=== PATIENT | female | born 2000 | race Hispanic/Latino ===

== ENCOUNTER 2021-01-14 11:16 | Observation (INO) | payer MEDICAID ==
[~2021-01-14] VITALS: Ht 152.4 cm; Wt 53.5 kg
[2021-01-14 11:18] VITALS: BP 110/66
[2021-01-14 13:35] VITALS: BP 112/63
[2021-01-14 14:27] LABS: APPEARANCE,URINE Clear (CLEAR); BILIRUBIN,URINE Negative (NEGATIVE); COLOR,URINE Yellow (YELLOW); GLUCOSE, URINE (UA) Negative (NEGATIVE); KETONES,URINE Negative (NEGATIVE); LEUKOCYTE ESTERASE ,URINE Large (NEGATIVE); NITRATE,URINE Negative (NEGATIVE); OCCULT BLOOD,URINE Negative (NEGATIVE); PROTEIN,URINE Negative (NEGATIVE)
[2021-01-14] MEDS: LACTATED RINGERS 1000ML 1,000 ML IV SCH ×3 (14:40→22:18)
[2021-01-14 14:48] LABS: BACTERIA,URINE Few /HPF (None Seen); RBC,URINE 0-1 /HPF (0-1); SQUAMOUS EPITHELIAL CELL,UR Moderate /HPF (0-2)
[2021-01-14 14:49] LABS: MUCUS,URINE Rare LPF (None Seen)
[2021-01-14 15:08] LABS: HEMATOCRIT 26.7 % (36-48); MEAN CORPUSCULAR HEMOGLOBIN 31.4 pg (27.0-33.0); MEAN CORPUSCULAR HGB CONC 33.7 g/dL (32.0-36.0); RED BLOOD CELL COUNT(AUTO) 2.87 MIL/uL (4.00-5.50); RED CELL DISTRIBUTION WIDTH 14.2 % (11.0-15.5); WHITE BLOOD COUNT (AUTO) 8.1 K/uL (4.8-10.8)
[2021-01-14 15:22] LABS: CREATININE 0.4 mg/dL (0.5-1.5); POTASSIUM 3.8 mmol/L (3.5-5.1)
[2021-01-14 15:23] LABS: INR 0.91 (0.85-1.15)
[2021-01-14 15:25] LABS: PARTIAL THROMBOPLASTIN TIME 24.3 SEC (26.3-35.5)
[2021-01-14 15:28] LABS: ALBUMIN 2.4 g/dL (3.5-5.0); BILIRUBIN,TOTAL 0.3 mg/dL (0.2-1.0); TOTAL PROTEIN, SERUM 6.1 g/dL (6.0-8.3)
[2021-01-14] MEDS ORDERED: TERBUTALINE SULFATE VIAL 1MG/ML SQ SCH ×2 (21:30)
[2021-01-15] MEDS: LACTATED RINGERS 1000ML 1,000 ML IV SCH (00:39)
== END 2021-01-15 08:50 | disposition home or self-care (01) ==
LOC: EDH 11:16 → LDH 11:17
PROVIDERS: ADMIT Obstetrics & Gynecology; ATTEND Obstetrics & Gynecology
DX: O9A.213 Injury, poisoning and certain other consequences of external causes complicating pregnancy, third trimester (principal); S70.02XA Contusion of left hip, initial encounter; O62.9 Abnormality of forces of labor, unspecified; Z3A.36 36 weeks gestation of pregnancy; W18.30XA Fall on same level, unspecified, initial encounter; Y93.89 Activity, other specified; Y92.89 Other specified places as the place of occurrence of the external cause; Y99.8 Other external cause status
CPT/HCPCS: 36415; 59025; 76805; 80053; 81001; 85027; 85378; 85384; 85610; 85730; 86850; 86900; 86901; 87088; 96360; 96361 ×5; 96372; 99284; G0378 ×20; J3105; J7120 ×3

== ENCOUNTER 2021-04-03 21:59 | Inpatient (IN) | payer MEDICAID ==
[~2021-04-03] VITALS: Ht 152.4 cm; Wt 57.2 kg
[2021-04-03] MEDS ORDERED: LACTATED RINGERS 500 ML 500 ML IV PRN (22:30)
[2021-04-03] MEDS ORDERED: EPHEDRINE SULFATE 50 MG/ML AMPULE IVP PRN (22:30)
[2021-04-03] MEDS ORDERED: NALOXONE HCL 0.4 MG/1 ML ML IV PRN (22:30)
[2021-04-03] MEDS ORDERED: ROPIVACAINE 0.2% 100ML VIAL 100 ML EP SCH (22:30)
[2021-04-03 22:41] LABS: APPEARANCE,URINE Cloudy (CLEAR); BILIRUBIN,URINE Small (NEGATIVE); COLOR,URINE Dark Yellow (YELLOW); GLUCOSE, URINE (UA) Negative (NEGATIVE); KETONES,URINE Negative (NEGATIVE); LEUKOCYTE ESTERASE ,URINE Small (NEGATIVE); NITRATE,URINE Negative (NEGATIVE); OCCULT BLOOD,URINE Negative (NEGATIVE); PH,URINE 5.5 (5.0-8.0); PROTEIN,URINE POS 1+ mg/dL (NEGATIVE)
[2021-04-03 22:55] VITALS: BP 115/58
[2021-04-03 22:57] LABS: BACTERIA,URINE Few /HPF (None Seen); SQUAMOUS EPITHELIAL CELL,UR Many /HPF (0-2)
[2021-04-03 23:00] LABS: HEMATOCRIT 29.3 % (36-48); MEAN CORPUSCULAR HEMOGLOBIN 29.8 pg (27.0-33.0); MEAN CORPUSCULAR HGB CONC 33.8 g/dL (32.0-36.0); MEAN CORPUSCULAR VOLUME 88.3 fL (79-99); RED BLOOD CELL COUNT(AUTO) 3.32 MIL/uL (4.00-5.50); WHITE BLOOD COUNT (AUTO) 11.1 K/uL (4.8-10.8)
[2021-04-03] MEDS: LACTATED RINGERS 1000ML 1,000 ML IV PRN (23:17)
[2021-04-04] MEDS: LACTATED RINGERS 1000ML 1,000 ML IV PRN ×3 (03:52→07:02)
[2021-04-04] MEDS ORDERED: OXYTOCIN-LR 20 UNITS/1000 ML 1,000 ML IV SCH ×2 (04:00→13:00)
[2021-04-04] MEDS ORDERED: FENTANYL CITRATE PF 50 MCG/1 ML 2ML VIAL ONE (04:59)
[2021-04-04 09:32] LABS: RAPID PLASMA REAGIN NONREACTIVE (NONREACTIVE)
[2021-04-04] MEDS ORDERED: LIDOCAINE HCL 1% 20 ML VIAL ONE (11:48)
[2021-04-04] MEDS: OXYTOCIN-LR 20 UNITS/1000 ML 1,000 ML IV SCH ×2 (12:36→22:30)
[2021-04-04] MEDS ORDERED: METHYLERGONOVINE MALEATE 0.2 MG/1 ML ML ONE (12:41)
[2021-04-04] MEDS ORDERED: LANOLIN 30GM OINTMENT TP PRN (13:00)
[2021-04-04] MEDS ORDERED: ACETAMINOPHEN WITH CODEINE 1 TAB TAB PO PRN (13:00)
[2021-04-04] MEDS ORDERED: MEASLES/MUMPS/RUBELLA VACCINE, LIVE 0.5 ML/VIAL SQ PRN (13:00)
[2021-04-04] MEDS ORDERED: DIPH,PERTUSS(ACELL),TET VAC/PF 0.5 ML VIAL IM PRN (13:00)
[2021-04-04] MEDS ORDERED: WITCH HAZEL 1 PAD TP PRN (13:00)
[2021-04-04] MEDS ORDERED: BENZOCAINE/LANOLIN/ALOE VERA 60 ML AEROSOL TP PRN (13:00)
[2021-04-04] MEDS ORDERED: ACETAMINOPHEN 325 MG TAB PO PRN (13:00)
[2021-04-04] MEDS: IBUPROFEN 600 MG TABLET PO PRN ×2 (14:13→23:14)
[2021-04-04 16:13] VITALS: BP 126/80
[2021-04-04] MEDS ORDERED: PREN1TAB26 PO (16:38)
[2021-04-04] MEDS ORDERED: FERR325T22 PO (16:38)
[2021-04-04 19:16] VITALS: BP 130/78
[2021-04-04] MEDS: DOCUSATE SODIUM 100 MG CAP PO SCH (20:55)
[2021-04-04 23:07] VITALS: BP 107/62
[2021-04-05 03:05] VITALS: BP 111/54
[2021-04-05 06:22] LABS: HEMATOCRIT 27.3 % (36-48); MEAN CORPUSCULAR HEMOGLOBIN 30.4 pg (27.0-33.0); MEAN CORPUSCULAR HGB CONC 33.7 g/dL (32.0-36.0); MEAN CORPUSCULAR VOLUME 90.1 fL (79-99); RED BLOOD CELL COUNT(AUTO) 3.03 MIL/uL (4.00-5.50); RED CELL DISTRIBUTION WIDTH 14.1 % (11.0-15.5); WHITE BLOOD COUNT (AUTO) 11.6 K/uL (4.8-10.8)
[2021-04-05 07:08] VITALS: BP 142/73
[2021-04-05 08:14] LABS: HEPATITIS Bs ANTIGEN SCREEN P Negative (Negative)
[2021-04-05] MEDS: DOCUSATE SODIUM 100 MG CAP PO SCH (09:24)
[2021-04-05] MEDS: IBUPROFEN 600 MG TABLET PO PRN (09:27)
[2021-04-05 11:23] VITALS: BP 109/53
== END 2021-04-05 14:30 | disposition home or self-care (01) | DRG 560 ==
LOC: LDH 21:59 → OBSVTOIN 21:59 → WSH 04-04 15:51
PROVIDERS: ADMIT Obstetrics & Gynecology; ATTEND Obstetrics & Gynecology
PROC: 10E0XZZ Delivery of Products of Conception, External Approach (ICD-10-PCS; principal; 2021-04-04)
PROC: 10907ZC Drainage of Amniotic Fluid, Therapeutic from Products of Conception, Via Natural or Artificial Opening (ICD-10-PCS; 2021-04-04)
PROC: 3E0R3BZ Introduction of Anesthetic Agent into Spinal Canal, Percutaneous Approach (ICD-10-PCS; 2021-04-04)
PROC: 00HU33Z Insertion of Infusion Device into Spinal Canal, Percutaneous Approach (ICD-10-PCS; 2021-04-04)
PROC: 3E0334Z Introduction of Serum, Toxoid and Vaccine into Peripheral Vein, Percutaneous Approach (ICD-10-PCS; 2021-04-04)
DX: O80 Encounter for full-term uncomplicated delivery (principal); Z37.0 Single live birth; Z3A.39 39 weeks gestation of pregnancy; Z67.11 Type A blood, Rh negative
CPT/HCPCS: 36415; 81001; 83033; 85027; 86592; 86701; 86850; 86870; 86900; 86901; 87088; 87340; 87390; A4314; G0378; J2210; J2590; J2791; J2795; J3010; J7120

== ENCOUNTER 2021-04-07 19:11 | Emergency (ER) | payer MEDICAID ==
[~2021-04-07] VITALS: Ht 152.4 cm; Wt 54.4 kg
[~2021-04-07 19:11] MED LIST: FERR325T22 PO; PREN1TAB26 PO
[2021-04-07] MEDS ORDERED: DICYCLOMINE 20MG (10MG/ML) AMP IM STA (19:34)
[2021-04-07] MEDS ORDERED: LACTULOSE 20 GM/30 ML UDCUP PO ONE (20:00)
[2021-04-07] MEDS ORDERED: MAGNESIUM CITRATE 296 ML SOLUTION PO ONE (20:00)
[2021-04-07 20:02] LABS: BASOPHILS % (AUTO) 0.4 % (0.0-5.0); EOSINOPHILS % (AUTO) 2.5 % (0.0-8.0); LYMPHOCYTES % (AUTO) 21.2 % (21.0-51.0); MEAN CORPUSCULAR HGB CONC 33.8 g/dL (32.0-36.0); MEAN CORPUSCULAR VOLUME 88.7 fL (79-99); MONOCYTES % (AUTO) 6.3 % (3.0-13.0); NEUTROPHILS % (AUTO) 69.1 % (40.0-77.0); PLATELET COUNT (AUTO) 258 K/uL (130-400); RED BLOOD CELL COUNT(AUTO) 2.93 MIL/uL (4.00-5.50); WHITE BLOOD COUNT (AUTO) 7.3 K/uL (4.8-10.8)
[2021-04-07 20:13] LABS: CREATININE 0.6 mg/dL (0.5-1.5); POTASSIUM 3.8 mmol/L (3.5-5.1)
[2021-04-07 20:18] LABS: ALBUMIN 2.2 g/dL (3.5-5.0); BILIRUBIN,TOTAL 0.3 mg/dL (0.2-1.0); TOTAL PROTEIN, SERUM 6.1 g/dL (6.0-8.3)
[2021-04-07 20:30] VITALS: BP 125/76
[2021-04-07 20:37] LABS: APPEARANCE,URINE Clear (CLEAR); BILIRUBIN,URINE Negative (NEGATIVE); COLOR,URINE Yellow (YELLOW); GLUCOSE, URINE (UA) Negative (NEGATIVE); KETONES,URINE Trace mg/dL (NEGATIVE); LEUKOCYTE ESTERASE ,URINE Trace (NEGATIVE); NITRATE,URINE Negative (NEGATIVE); OCCULT BLOOD,URINE Large (NEGATIVE); PROTEIN,URINE Negative (NEGATIVE)
[2021-04-07 20:55] LABS: BACTERIA,URINE Rare /HPF (None Seen); SQUAMOUS EPITHELIAL CELL,UR Few /HPF (0-2)
[2021-04-07 20:56] LABS: MUCUS,URINE Rare LPF (None Seen)
[2021-04-07 21:40] VITALS: BP 114/80
[2021-04-07] MEDS ORDERED: LACT10PA5 PO (22:26)
[2021-04-07] MEDS ORDERED: CEPH500B PO (22:26)
[2021-04-07] MEDS ORDERED: CEPHALEXIN 500 MG CAPSULE PO ONE (22:30)
[2021-04-07 22:38] VITALS: BP 110/77
[2021-04-07] MEDS ORDERED: CEPHALEXIN 500 MG CAPSULE ONE (22:41)
== END 2021-04-07 22:48 | disposition home or self-care (01) ==
LOC: EDH 19:11
DX: O86.20 Urinary tract infection following delivery, unspecified (principal); O90.81 Anemia of the puerperium; O90.89 Other complications of the puerperium, not elsewhere classified; K59.00 Constipation, unspecified
CPT/HCPCS: 36415; 74176; 80053; 81001; 81025; 85025; 96372; 99284; J0500